=== PATIENT | female | born 1950 | race Caucasian/White ===

== ENCOUNTER 2020-04-13 10:45 | Emergency (ER) | payer MEDICARE, BC ==
[2020-04-13] MEDS ORDERED: Sodium Chloride 0.9% 1,000 ML IV ONE (10:52)
[2020-04-13] MEDS ORDERED: Sodium Chloride 0.9% 10 ML Syringe FLUSH PRN (10:52)
[2020-04-13] MEDS ORDERED: Ketorolac 30 MG/ML SDV IVPUSH ONE (11:19)
[2020-04-13] MEDS ORDERED: Ondansetron 4 MG/2 ML SDV IVPUSH ONE ×2 (11:19→12:37)
--- NOTE | 2020-04-13 11:19 | EDM.PDOC ---
ED HPI GENERAL MEDICAL PROBLEM - General Chief Complaint: General Stated Complaint: LOW BACK PAIN, NAUSEA, VOMITING, POOR APPETITE Time Seen by Provider: 04/13/20 11:00 Source of Information: Reports: Patient History Limitations: Reports: No Limitations - History of Present Illness INITIAL COMMENTS - FREE TEXT/NARRATIVE: 70 YO WF PRESENTS TO ER COMPLAINING OF SEVERE LOW BACK PAIN X 2 WEEKS. PT REPORTS HISTORY OF CHRONIC LOW BACK PAIN WITH HISTORY OF EPIDURAL INJECTION APPROXIMATELY 1 YEAR AGO. PT REPORTS SHE HAS BEEN TAKING NAPROSYN FOR THE PAIN AND GETTING MINIMAL RELIEF. PT REPORTS TODAY SHE BEGAN TO FEEL NAUSEATED AND LIGHTHEADED. PT REPORTS AFTER TAKING HER MORNING MEDICATION SHE VOMITED X 1. PT DENIES DYSURIA, URINARY FREQUENCY OR URGENCY. PT DENIES CHEST PAIN/SHORTNESS OF BREATH. PT BELIEVES HER NAUSEA WAS RELATED TO HER SEVERE PAIN. PT DENIES FEVER/CHILLS. PT STATES SHE DID NOT TAKE HER NAPROSYN THIS AM PRIOR TO COMING TO ER. PT REPORTS HISTORY OF NIDDM- BS THIS AM 230. Duration: Week(s): (2), Chronic, Getting Worse Location: Reports: Back Quality: Reports: Ache Severity: Moderate Improves with: Reports: Rest Worsens with: Reports: Movement Associated Symptoms: Reports: Nausea/Vomiting. Denies: Chest Pain, Cough, Diaphoresis, Fever/Chills, Headaches, Rash, Shortness of Breath, Syncope, Weakness Treatments DIRECTOR OF RECRUITING: Reports: NSAIDS - Related Data Allergies Allergy/AdvReac Type Severity Reaction Status Date / Time Penicillins Allergy Rash Verified 04/13/20 11:45 Home Meds: Home Meds Ascorbic Acid [Vitamin C] 500 mg PO DAILY 12/06/15 [History] Aspirin [Halfprin] 81 mg PO BEDTIME 12/06/15 [History] Lisinopril [Prinivil] 5 mg PO DAILY 12/06/15 [History] Multivitamin with Minerals [Multiple Vitamin] 1 tab PO DAILY 12/06/15 [History] Terbinafine [LamISIL AT 1% Crm] 1 applic TOP ASDIRECTED PRN 12/06/15 [History] Triamcinolone Acetonide [Triamcinolone Acetonide 0.1% Crm] 1 applic TOP TID PRN 12/06/15 [History] atorvaSTATin Calcium [Atorvastatin Calcium] 20 mg PO BEDTIME 12/06/15 [History] glipiZIDE [Glipizide ER] 10 mg PO DAILY 12/06/15 [History] metFORMIN HCl [Metformin HCl] 2 cap PO BID 12/06/15 [History] Ciprofloxacin HCl [Cipro] 500 mg PO BID #10 tablet 04/13/20 [Rx] methocarbamoL [Robaxin] 500 mg PO TID PRN #10 tab 04/13/20 [Rx] traMADol [Ultram] 50 mg PO Q6H PRN #10 tab 04/13/20 [Rx] 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: Musculoskeletal History: Reports: Back Pain, Chronic Endocrine/Metabolic History: Reports: Diabetes, Type II ED ROS GENERAL - Review of Systems Review Of Systems: See Below Constitutional: Reports: No Symptoms HEENT: Reports: No Symptoms Respiratory: Reports: No Symptoms Cardiovascular: Reports: No Symptoms Endocrine: Reports: No Symptoms GI/Abdominal: Reports: Nausea, Vomiting : Reports: No Symptoms Musculoskeletal: Reports: Back Pain Skin: Reports: No Symptoms Neurological: Reports: Difficulty Walking Psychiatric: Reports: No Symptoms Hematologic/Lymphatic: Reports: No Symptoms Immunologic: Reports: No Symptoms ED EXAM, GENERAL - Physical Exam Exam: See Below Exam Limited By: No Limitations General Appearance: Alert, WD/WN, No Apparent Distress Head: Atraumatic, Normocephalic Neck: Normal Inspection, Supple, Non-Tender, Full Range of Motion Respiratory/Chest: No Respiratory Distress, Lungs Clear, Normal Breath Sounds, No Accessory Muscle Use, Chest Non-Tender Cardiovascular: Normal Peripheral Pulses, Regular Rate, Rhythm, No Edema, No Gallop, No JVD, No Murmur, No Rub GI/Abdominal: Normal Bowel Sounds, Soft, Non-Tender, No Organomegaly, No Distention, No Abnormal Bruit, No Mass Back Exam: Decreased Range of Motion, Muscle Spasm, Paraspinal Tenderness Extremities: Normal Inspection, Normal Range of Motion, Non-Tender, Normal Capillary Refill, No Pedal Edema Neurological: Alert, Oriented, CN II-XII Intact, Normal Cognition, Normal Gait, Normal Reflexes, No Motor/Sensory Deficits Psychiatric: Normal Affect, Normal Mood Skin Exam: Warm, Dry, Intact, Normal Color, No Rash Lymphatic: No Adenopathy Course - Orders/Labs/Meds Orders: Active Orders 24 hr Category Date Time Status Peripheral IV Care [RC] . DIRECTED Care 04/13/20 10:52 Active CULTURE URINE [RM] Stat Lab 04/13/20 12:51 Ordered Ciprofloxacin [Ciprofloxacin HCl] Med 04/13/20 12:51 Once 500 mg PO ONETIME ONE Sodium Chloride 0.9% [Saline Flush] Med 04/13/20 10:52 Active 10 ml FLUSH Q8HR PRN Peripheral IV Insertion Adult [OM.PC] Routine Oth 04/13/20 10:52 Ordered Medication Orders Sodium Chloride (Saline Flush) 10 ml FLUSH Q8HR PRN PRN Reason: keep vein open Labs: Laboratory Tests 04/13/20 04/13/20 04/13/20 Range/Units 11:36 11:36 12:17 WBC 14.94 H (5.00-10.00) 10^3/uL RBC 4.13 (3.80-5.50) 10^6/uL Hgb 12.3 (12.0-16.0) g/dL Hct 37.0 (37.0-47.0) % MCV 89.6 D (82.0-92.0) fL MCH 29.8 (27.0-31.0) pg MCHC 33.2 (32.0-36.0) g/dL RDW 12.3 (11.5-14.5) % Plt Count 290 (150-400) 10^3/uL MPV 9.4 (7.4-10.4) fL Immature Gran % (Auto) 0.2 (0.0-5.0) % Neut % (Auto) 77.6 H (50.0-70.0) % Lymph % (Auto) 16.5 L (20.0-40.0) % [place] % (Auto) 5.4 (2.0-8.0) % Eos % (Auto) 0.1 L (1.0-3.0) % Baso % (Auto) 0.2 (0.0-1.0) % Neut # (Auto) 11.59 H (2.50-7.00) 10^3/uL Lymph # (Auto) 2.47 (1.00-4.00) 10^3/uL [place] # (Auto) 0.81 H (0.10-0.80) 10^3/uL Eos # (Auto) 0.01 L (0.10-0.30) 10^3/uL Baso # (Auto) 0.03 (0.00-0.10) 10^3/uL Immature Gran # (Auto) 0.03 (0.00-0.50) 10^3/uL Sodium 136 (136-145) mmol/L Potassium 4.4 (3.3-5.3) mmol/L Chloride 98 (98-115) mmol/L Carbon Dioxide 23.7 (21.0-32.0) mmol/L Anion Gap 18.7 H (5-15) mmol/L BUN 10 (6-25) mg/dL Creatinine 0.51 (0.51-1.17) mg/dL Est Cr Clr Drug Dosing TNP Estimated GFR (MDRD) > 60 mL/min Glucose 246 H (75 - 99) mg/dL Calcium 9.4 (8.7-10.3) mg/dL Total Bilirubin 0.4 (0.2-1.0) mg/dL AST 14 L (15-37) U/L ALT 22 (12-78) U/L Alkaline Phosphatase 105 (46-116) IU/L Total Protein 7.4 (6.4-8.2) g/dL Albumin 3.82 (3.00-4.80) g/dL Lipase 90 (73-393) U/L Specimen Type Urinvoid Urine Color Yellow (YELLOW) Urine Appearance Clear (CLEAR) Urine pH 5.5 (5.0-9.0) Ur Specific [place] 1.020 (1.005-1.030) Urine Protein Negative (NEGATIVE) mg/dL Urine Glucose (UA) 250 H (NEGATIVE) mg/dL Urine Ketones >=160 H (NEGATIVE) mg/dL Urine Occult Blood Small H (NEGATIVE) Urine Nitrite Negative (NEGATIVE) Urine Bilirubin Small H (NEGATIVE) Urine Urobilinogen 0.2 (0.2-1.0) E.U./dL Ur Leukocyte Esterase Negative (NEGATIVE) U Hyaline Cast (Auto) Few Urine RBC 10-20 H (0-5) /HPF Urine WBC 0-5 (0-5) /HPF Ur Epithelial Cells Few /LPF Amorphous Sediment Few (0/HPF) /HPF Urine Bacteria Few (NONE TO FEW) /HPF Meds: Medications Generic Name Dose Route Start Last Admin Trade Name Freq PRN Reason Stop Dose Admin Sodium Chloride 10 ml 04/13/20 10:52 Saline Flush FLUSH Q8HR PRN keep vein open Discontinued Medications Generic Name Dose Route Start Last Admin Trade Name Quirinoq PRN Reason Stop Dose Admin Diazepam 5 mg 04/13/20 11:19 Valium IVPUSH 04/13/20 11:20 ONETIME ONE Hydromorphone HCl 0.5 mg 04/13/20 12:37 Dilaudid IVPUSH 04/13/20 12:38 ONETIME ONE Sodium Chloride 1,000 mls @ 999 mls/hr 04/13/20 10:52 Normal Saline IV 04/13/20 11:52 .BOLUS ONE Ketorolac Tromethamine 30 mg 04/13/20 11:19 Toradol IVPUSH 04/13/20 11:20 ONETIME ONE Ondansetron HCl 4 mg 04/13/20 11:19 Zofran IVPUSH 04/13/20 11:20 ONETIME ONE Ondansetron HCl 4 mg 04/13/20 12:37 Zofran IVPUSH 04/13/20 12:38 ONETIME ONE - Radiology Interpretation Free Text/Narrative:: PT REPORTS FEELING BETTER AFTER MEDICATION. DE HAS APPOINTMENT IN CLINIC ON Wednesday04/15/2020. RECOMMENDED CONSIDERATION OF PHYSICAL THERAPY AND EPIDURAL INJECTIONS. PT NEEDS HGBA1C DUE TO ELEVATED BLOOD SUGARS. PT AGREEABLE TO PLAN OF CARE. WILL DISCHARGE ON ULTRAM/SKELAXIN/MOTRIN X 5 DAYS Departure - Departure Time of Disposition: 12:57 Disposition: Home, Self-Care 01 Condition: Fair Clinical Impression: UTI, Urinary tract infectious disease, Hyperglycemia Low back pain Qualifiers: Chronicity: chronic Sciatica presence: without sciatica - Discharge Information Prescriptions: Ciprofloxacin HCl [Cipro] 500 mg PO BID #10 tablet methocarbamoL [Robaxin] 500 mg PO TID PRN #10 tab PRN Reason: Muscle Spasm traMADol [Ultram] 50 mg PO Q6H PRN #10 tab PRN Reason: Pain Instructions: Urinary Tract Infection, Adult, [id number], Chronic Back Pain, [id number] Referrals: Sonia Post MD [Primary Care Provider] - Forms: ED Department Discharge Additional Instructions: 1. DISCHARGE HOME 2. CIPRO 500MG TWICE/DAY X 7 DAYS FOR UTI 3. ULTRAM 50MG 1-2 TABLETS EVERY 4-6 HOURS PRN FOR PAIN 4. MOTRIN 600MG EVERY 6 HOURS X 5 DAYS OTC (3 TABLETS) 5. SKELAXIN 800MG EVERY 8 HOURS NEEDED MUSCLE SPASMS 6. FOLLOW UP IN CLINIC FOR RECHECK AND CONSIDER PHYSICAL THERAPY, EPIDURAL INJECTIONS 7. REPEAT HGBA1C IN CLINIC THIS WEEK 8. RETURN TO ER FOR WORSENING SYMPTOMS - My Orders Last 24 Hours: My Active Orders 04/13/20 10:52 Peripheral IV Care [RC] . DIRECTED Sodium Chloride 0.9% [Saline Flush] 10 ml FLUSH Q8HR PRN Peripheral IV Insertion Adult [OM.PC] Routine 04/13/20 12:51 CULTURE URINE [RM] Stat Ciprofloxacin [Ciprofloxacin HCl] 500 mg PO ONETIME ONE - Assessment/Plan Last 24 Hours: My Active Orders 04/13/20 10:52 Peripheral IV Care [RC] . DIRECTED Sodium Chloride 0.9% [Saline Flush] 10 ml FLUSH Q8HR PRN Peripheral IV Insertion Adult [OM.PC] Routine 04/13/20 12:51 CULTURE URINE [RM] Stat Ciprofloxacin [Ciprofloxacin HCl] 500 mg PO ONETIME ONE Assessment:: 1. LOW BACK PAIN 2. UTI 3. HYPERGLYCEMIA Plan: 1. DISCHARGE HOME 2. CIPRO 500MG TWICE/DAY X 7 DAYS FOR UTI 3. ULTRAM 50MG 1-2 TABLETS EVERY 4-6 HOURS PRN FOR PAIN 4. MOTRIN 600MG EVERY 6 HOURS X 5 DAYS #20 5. SKELAXIN 800MG EVERY 8 HOURS NEEDED MUSCLE SPASMS 6. FOLLOW UP IN CLINIC FOR RECHECK AND CONSIDER PHYSICAL THERAPY, EPIDURAL INJECTIONS 7. REPEAT HGBA1C IN CLINIC THIS WEEK 8. RETURN TO ER FOR WORSENING SYMPTOMS
[2020-04-13 12:00] LABS: ANION GAP 18.7 mmol/L (5-15); CHLORIDE,CL 98 mmol/L (98-115); SODIUM,NA 136 mmol/L (136-145)
[2020-04-13] MEDS ORDERED: HYDROmorphone 1 MG/ML Syringe IVPUSH ONE (12:37)
[2020-04-13] MEDS ORDERED: Ciprofloxacin 500 MG Tab PO ONE ×2 (12:51→13:04)
[2020-04-13] MEDS ORDERED: Methocarbamol 500 MG Tab PO ONE (13:05)
[2020-04-13] MEDS ORDERED: traMADol 50 MG Tab PO ONE (13:05)
[2020-04-13 15:33] VITALS: BP 148/60; PULSE 83
== END 2020-04-13 14:25 | disposition home or self-care (01) ==
LOC: KA.ED 10:45
DX: N39.0 Urinary tract infection, site not specified (principal); E11.65 Type 2 diabetes mellitus with hyperglycemia; Z88.0 Allergy status to penicillin; Z79.82 Long term (current) use of aspirin; Z79.84 Long term (current) use of oral hypoglycemic drugs; Z79.899 Other long term (current) drug therapy
CPT/HCPCS: 80053; 81001; 83690; 85025; 87086; 96361; 96374; 96375; 96376; 99283; 99284-25; A9270-GY; J1170; J1885; J2405; J3360; J7030

== ENCOUNTER 2020-04-18 16:30 | Observation (INO) | payer MEDICARE, BC ==
[2020-04-18] MEDS ORDERED: Ondansetron 4 MG/2 ML SDV IV PRN (16:48)
[2020-04-18] MEDS ORDERED: methylPREDNISolone Sodium Succinate 125 MG/2 ML SDV IVPUSH ONE (16:59)
[2020-04-18] MEDS ORDERED: Lactated Ringers 1,000 ML IV SCH (17:00)
[2020-04-18] MEDS ORDERED: Metoclopramide 10 MG/2 ML SDV IVPUSH ONE (17:30)
[2020-04-18] MEDS: Sodium Chloride 0.9% 1,000 ML IV SCH (18:18)
[2020-04-18] MEDS: HYDROmorphone 2 MG/ML SDV IVPUSH PRN (18:19)
[2020-04-19] MEDS: Sodium Chloride 0.9% 1,000 ML IV SCH ×3 (02:02→21:32)
[2020-04-19] MEDS ORDERED: Diatrizoate Meglumine/Diatrizoate Sodium 37% 30 ML Bottle PO ONE (07:53)
[2020-04-19] MEDS ORDERED: Iopamidol 755 Mg/ML 100 ML Bottle IV ONE (07:54)
[2020-04-19] MEDS ORDERED: Sodium Chloride 0.9% 50 ML IV SCH (08:00)
[2020-04-19] MEDS ORDERED: metFORMIN 500 MG Tab PO SCH (09:00)
[2020-04-19] MEDS ORDERED: Ciprofloxacin 500 MG Tab PO SCH (09:00)
[2020-04-19] MEDS: HYDROmorphone 2 MG/ML SDV IVPUSH PRN (09:00)
[2020-04-19] MEDS ORDERED: Methocarbamol 500 MG Tab PO PRN (09:15)
[2020-04-19] MEDS ORDERED: Calcitonin (Salmon) 200 Units/ML 2 ML MDV SUBCUT SCH (10:30)
[2020-04-19] MEDS: traMADol 50 MG Tab PO PRN ×2 (10:42→21:31)
[2020-04-19] MEDS: Lisinopril 5 MG Tab PO SCH (10:43)
[2020-04-19] MEDS: Multivitamins with Minerals/Iron/Folic Acid/Lycopene Tab PO SCH (12:03)
--- NOTE | 2020-04-19 14:27 | HP ---
HISTORY OF PRESENT ILLNESS: This is a 70-year-old female who presents to this facility today to receive an epidural steroid injection with Angela Gotti CRNA. The patient has been having low back pain for the last three months. She was actually seen in the emergency room on April 13, 2020 and was evaluated by Terry Wing. She was treated with Valium, Dilaudid, Toradol, and Zofran. She was also found to have a urinary tract infection and was treated with Cipro. She was also given a prescription for Skelaxin. She followed up with Dr. Sonia Dumont in the clinic on April 15. She did have lab work on that day as well. White count was slightly elevated, but improved from the emergency room. Comprehensive metabolic panel showed elevated glucose of 199. BUN and creatinine were normal. Liver function tests were essentially normal with the exception of a slightly low AST. Lipid panel was completely normal. She had a lumbar spine AP and lateral x-ray performed on 04/17/2020. Findings were since the prior study, there were multiple new compression deformities. These are age indeterminate. There are compression deformities of T11, T12, L1, L2 and L3. Additionally, there is likely compression deformity at L5. MRI of the spine was recommended. She was referred to Angela Gotti for epidural steroid injection. The patient was in so much pain that she was unable to tolerate the injection. MRI was then performed today. The patient had to be sedated for the MRI. She was admitted to the hospital for pain control as well as GI workup for nausea. She did receive Zofran in the procedure room prior to coming to the floor. Results of the MRI showed acute to subacute moderate L3 and mild L2 compression fractures new relative to June 29, 2019, but unchanged relative to April 17, 2020. There was also a subacute [id number] L5 compression fracture which is new relative to 2019. Chronic moderate T12 and L1 compression fracture is unchanged. Mild to moderate lumbar spondylosis with no new nerve root compression. PAST MEDICAL HISTORY: Includes diabetes mellitus type 2, hypertension, hypercholesterolemia, and back pain. She is on a daily aspirin regimen. She takes dietary supplements of vitamin C as well as a multivitamin. She has diabetes mellitus and takes glipizide as well as metformin. She has hypercholesterolemia and is taking atorvastatin. For back pain, she is taking Robaxin as well as tramadol. She is taking Cipro for urinary tract infection which was diagnosed on 04/13/2020 in the emergency room. SOCIAL HISTORY: She is retired. She lives by herself. She does have a daughter, Bijal who accompanies her to the clinic today. She is a former smoker, but does not smoke now. She does not use alcohol. REVIEW OF SYSTEMS: She denies any headache, visual disturbances, ear pain, sore throat, chest pain, palpitations, shortness of breath, abdominal pain, diarrhea, or constipation. Last bowel movement was on April 15, 2020. She does complain of nausea, however. She attributes this to the high level of pain she is experiencing at the time. PHYSICAL EXAMINATION: VITAL SIGNS: Temp is 98.1, pulse 82, respirations 16, blood pressure 126/59, and O2 saturation is 94% on room air. SKIN: Warm and dry to touch. CARDIAC: Reveals S1, S2 to be normal. Rate and rhythm are regular. No murmur, click, or gallop is auscultated. LUNGS: Clear. ABDOMEN: Somewhat tender over the epigastrium due to nausea. Bowel sounds are hypoactive. EXTREMITIES: There is no pedal edema. She does have bilateral lower extremity weakness with good pulses. IMPRESSION: 1. Intractable low back pain. She will be admitted for pain management and treated with Dilaudid every 2 hours as needed. I did give her a one-time dose of Solu-Medrol 125 mg IV x1. 2. Nausea and constipation, etiology unclear. We will get a CT of the abdomen and pelvis with oral and IV contrast in the morning. Perhaps by then, the patient will be more comfortable and be able to tolerate lying on the CT platform. I did not repeat lab work due to the fact that she just had lab work done on the as well as the . 3. Diabetes mellitus, stable. 4. Low back pain is attributed to multiple compression fractures. I am unclear whether she would be a candidate for kyphoplasty/vertebroplasty. I will research this. She is admitted to observation status. If she requires more than 48 hours of hospital care, we will switch her to inpatient status. /[id number]/MODL
--- NOTE | 2020-04-19 14:53 | PN ---
04/19/2020 PATIENT NAME: SHARRI CANNON HISTORY OF PRESENT ILLNESS: This is a 70-year-old female who was admitted to the emergency room yesterday with intractable low back pain and nausea. She was here for an epidural steroid injection and was not even able to tolerate the epidural steroid injection. She was sedated for an MRI which showed acute to subacute moderate L3 and mild L2 compression fractures, which were new relative to June 29, 2019, but unchanged relative to lumbar spine x-ray on April 17, 2020. There is also subacute mild to moderate L5 compression fracture, which was new since 2019. There is a chronic moderate T12 and L1 compression fracture, which were unchanged. Mild to moderate lumbar spondylosis with no nerve root compression identified. The patient received one dose of Solu-Medrol 125 mg. We did not continue steroids due to the fact that the patient is worried about her diabetes being affected by the steroids. She was given Dilaudid as well as Zofran. She is feeling quite a bit better today. Her MRI was reviewed by Nabil Tony and he recommended a specialized brace that the patient is going to go down to [place] to be fitted for. She may be a candidate for kypho/vertebroplasty, however, has to fail conservative measures first. She did not have any lab work done with the exception of a COVID test which was negative. She had just had lab work drawn on April 13, 2020, when she was in the ER and also she had lab work done on April 15 when she was following up with Dr. Scott. PHYSICAL EXAMINATION: VITAL SIGNS: Temperature is 98.8, pulse 80, respirations 18, blood pressure 138/80, and O2 saturation is 97% on room air. SKIN: Warm and dry to touch. HEART: Normal. LUNGS: Normal. MUSCULOSKELETAL: She is sitting in a chair quite rigidly. Range of motion is quite compromised due to her back pain. EXTREMITIES: There is no pedal edema. IMPRESSION: 1. Intractable low back pain. The one-time dose of IV Solu-Medrol, I believe, was beneficial for her. She will continue on Dilaudid for pain. We did restart her home medications, which also include Robaxin and Ultram. 2. Nausea. This is improved. She is receiving Zofran on an as-needed basis. She did have a CT scan of the abdomen and pelvis today with oral and IV contrast which was negative. We are holding her metformin for 48 hours. 3. Diabetes mellitus is stable on metformin and glipizide. 4. Compression fractures of the thoracic and lumbar spine. She will be fitted for a brace. It was also recommended that she receive calcitonin. She was given a subcu dose today. She will continue on nasal dose on a daily basis after discharge. Plan is to discharge her tomorrow if she continues to improve. I would like to keep her one more day due to the pain and nausea. The patient has been able to eat today and has not vomited now for more than [address] Sonia Urban, who is the patient's PCP, has been fully updated on this patient's admission and progress. /[id number]/MODL
[2020-04-19] MEDS ORDERED: glipiZIDE 5 MG Tab.ER PO ONE (19:45)
[2020-04-19] MEDS ORDERED: glipiZIDE 5 MG Tab.ER PO SCH (21:00)
[2020-04-19] MEDS ORDERED: Loperamide 2 MG Cap PO PRN (21:03)
[2020-04-20] MEDS: Sodium Chloride 0.9% 1,000 ML IV SCH (05:45)
[2020-04-20 05:48] VITALS: PULSE 77
[2020-04-20] MEDS: traMADol 50 MG Tab PO PRN (05:52)
[2020-04-20] MEDS ORDERED: glipiZIDE 5 MG Tab.ER PO SCH (08:00)
[2020-04-20 08:13] VITALS: BP 116/57
[2020-04-20] MEDS: Lisinopril 5 MG Tab PO SCH (08:13)
[2020-04-20] MEDS ORDERED: atorvaSTATin 10 MG Tab PO SCH (11:00)
[2020-04-20] MEDS ORDERED: Aspirin 81 MG Tab.EC PO SCH (11:00)
[2020-04-20] MEDS: Multivitamins with Minerals/Iron/Folic Acid/Lycopene Tab PO SCH (11:20)
--- NOTE | 2020-04-22 21:40 | DISCH ---
HOSPITAL COURSE: This is a 70-year-old female who was admitted to the hospital on April 18, 2020, with intractable low back pain. The patient was actually in the facility to receive an epidural steroid injection with Angela Gotti CRNA. The patient did not tolerate laying down and actually did not receive the epidural. Angela was concerned about discharging the patient home and thought she should be admitted for pain control. The patient was seen in the emergency room prior to this admission on April 13, 2020, was evaluated by Terry Wing. She was given: 1. Valium. 2. Dilaudid. 3. Toradol. 4. Zofran. She was also found to have a urinary tract infection, was treated with Cipro. She was given a prescription for Skelaxin. She followed up in the clinic with Dr. Sonia Urban on April 15. She did have lab work on that day as well. White count was still slightly elevated, but improved from the emergency room. Comprehensive metabolic panel was basically normal with the exception of an elevated glucose of 199 and a slightly low AST. Lipid panel was completely normal. She had a lumbar spine AP and lateral x-rays performed on April 17, 2020, which showed multiple new compression deformities. She was found to have compression deformities of T11, T12, L1, L2, and L3. Additionally, there was a likely compression deformity at L5. She was referred to Angela Gotti for MONIQUE. She did not tolerate the injection and did not receive the injection. MRI was performed. The patient had to be sedated for the MRI due to the pain. She was admitted to the hospital for pain control as well as a GI workup for nausea. She did receive Zofran in the procedure room prior to coming to the floor. Results of the MRI showed acute to subacute, moderate L3 and mild L2 compression fractures. Also, subacute [id number] L5 compression fracture, which was new. Chronic moderate T12 and L1 compression fracture, unchanged. Mild to moderate lumbar spondylosis with no new nerve root compression. While in the hospital, she did receive Dilaudid for pain. She did have a one time dose of Solu-Medrol 125 IV. She did have a CT scan of the abdomen and pelvis with oral and IV contrast on April 19, 2020, which was completely normal. No lab work was done while she was in the hospital due to the fact that she had lab work on April 13 as well as April 17. Her glucose readings while in the hospital were somewhat elevated. PHYSICAL EXAMINATION: VITAL SIGNS: Temp is 99.1, pulse 91, respirations 18, blood pressure 134/64, O2 saturation is 94%. SKIN: Warm and dry to touch. CARDIAC: Reveals S1, S2 to be normal. Rate and rhythm are regular. No murmur, click, or gallop is auscultated. LUNGS: Clear. ABDOMEN: Soft, nontender. Bowel sounds present in all four quadrants. The patient does have intractable low back pain. Range of motion is quite compromised due to her back pain. She does have some lower extremity weakness as well. IMPRESSION: 1. Intractable low back pain with multiple compression fractures. She will be discharged on the same medications she was on prior to admission. No new changes. 2. Nausea and constipation. GI workup was negative. Her nausea has been controlled with Zofran. The patient has had a bowel movement while in the hospital. 3. Diabetes mellitus, stable. She will follow up in the clinic with Dr. Sonia Dumont or myself next week. Should she have any questions or concerns, she will call the clinic or hospital. /[id number]/MODL MTDD
== END 2020-04-20 12:40 | disposition home or self-care (01) ==
LOC: KA.MS 16:30
DX: M54.5 Low back pain (principal); E11.9 Type 2 diabetes mellitus without complications; I10 Essential (primary) hypertension; E78.00 Pure hypercholesterolemia, unspecified; K59.00 Constipation, unspecified; R11.0 Nausea; M47.816 Spondylosis without myelopathy or radiculopathy, lumbar region; M48.55XA Collapsed vertebra, not elsewhere classified, thoracolumbar region, initial encounter for fracture; Z20.828 Contact with and (suspected) exposure to other viral communicable diseases; Z79.82 Long term (current) use of aspirin; Z79.84 Long term (current) use of oral hypoglycemic drugs; Z79.899 Other long term (current) drug therapy; Z87.891 Personal history of nicotine dependence
CPT/HCPCS: 74177; 82962; 96361; 96374; 96375; 96376; 99217; 99220; 99225; A9270-GY; G0378; J1170; J2405; J2765; J2930; J7030; J7050; Q9963; Q9967; U0002

== ENCOUNTER 2020-06-04 10:00 | Day surgery (SDC) | payer MEDICARE, BC ==
[~2020-06-04 10:00] MED LIST: Lidocaine 2% 100 MG/5 ML Syringe ONE; Midazolam 1 MG/ML 2 ML SDV ONE; Propofol 200 MG/20 ML SDV ONE; Sodium Chloride 0.9% 1,000 ML IV SCH; Sodium Chloride 0.9% 10 ML Syringe FLUSH PRN
[2020-06-04] MEDS ORDERED: Lidocaine 2% 100 MG/5 ML Syringe IVPUSH ONE (10:01)
[2020-06-04] MEDS ORDERED: Midazolam 1 MG/ML 2 ML SDV IV ONE (10:01)
[2020-06-04] MEDS ORDERED: Propofol 200 MG/20 ML SDV IV ONE (10:01)
--- NOTE | 2020-06-04 12:05 | PCM.PN ---
- General Info Date of Service: 06/04/20 - Review of Systems Systems Review Comment:: 70-year-old female with symptoms of weight loss, dark stools, and anemia. Referred for EGD and colonoscopy. She is medically stable to proceed today. Her recent history and physical is reviewed and no significant changes are noted. I have discussed the proposed EGD and colonoscopy with the patient. Risks such as but not limited to bleeding and GI injury reviewed. She agrees to proceed. - Patient Data Vitals - Most Recent: Last Vital Signs Temp 98.8 F 06/04/20 10:09 Pulse 83 06/04/20 10:09 Resp 16 06/04/20 10:09 BP 132/59 L 06/04/20 10:09 Pulse Ox 99 06/04/20 10:09 Weight - Most Recent: 42.638 kg Lab Results Last 24 Hours: Laboratory Results - last 24 hr 06/04/20 06/04/20 06/04/20 Range/Units 08:55 10:23 10:42 WBC 5.94 (5.00-10.00) 10^3/uL RBC 3.91 (3.80-5.50) 10^6/uL Hgb 11.9 L D (12.0-16.0) g/dL Hct 35.1 L (37.0-47.0) % MCV 89.8 D (82.0-92.0) fL MCH 30.4 (27.0-31.0) pg MCHC 33.9 (32.0-36.0) g/dL RDW 13.4 (11.5-14.5) % Plt Count 408 H (150-400) 10^3/uL MPV 8.7 (7.4-10.4) fL Immature Gran % (Auto) 0.3 (0.0-5.0) % Neut % (Auto) 46.7 L (50.0-70.0) % Lymph % (Auto) 33.5 (20.0-40.0) % [place] % (Auto) 19.0 H (2.0-8.0) % Eos % (Auto) 0.3 L (1.0-3.0) % Baso % (Auto) 0.2 (0.0-1.0) % Neut # (Auto) 2.77 (2.50-7.00) 10^3/uL Lymph # (Auto) 1.99 (1.00-4.00) 10^3/uL [place] # (Auto) 1.13 H (0.10-0.80) 10^3/uL Eos # (Auto) 0.02 L (0.10-0.30) 10^3/uL Baso # (Auto) 0.01 (0.00-0.10) 10^3/uL Immature Gran # (Auto) 0.02 (0.00-0.50) 10^3/uL POC Glucose 152 H (74-100) mg/dL SARS CoV-2 RNA Rapid GENEVIEVE Negative (NEGATIVE) Med Orders - Current: Current Medications Sodium Chloride (Normal Saline) 1,000 mls @ 50 mls/hr IV ASDIRECTED GREER Last Admin: 06/04/20 10:55 Dose: 50 mls/hr Documented by: Sodium Chloride (Saline Flush) 10 ml FLUSH Q8HR PRN PRN Reason: keep vein open Discontinued Medications Lidocaine HCl (Xylocaine 2%) Confirm Administered Dose 100 mg .ROUTE .STK-MED ONE Stop: 06/04/20 09:28 Midazolam HCl (Versed 1 Mg/Ml) Confirm Administered Dose 2 mg .ROUTE .STK-MED ONE Stop: 06/04/20 09:27 Propofol (Diprivan 20 Ml) Confirm Administered Dose 400 mg .ROUTE .STK-MED ONE Stop: 06/04/20 09:28 Sepsis Event Note - Focused Exam Vital Signs: Vital Signs Temp Pulse Resp BP Pulse Ox 06/04/20 10:09 98.8 F 83 16 132/59 L 99 - Problem List Review Problem List Initiated/Reviewed/Updated: Yes - My Orders Last 24 Hours: My Active Orders 06/03/20 12:07 Resuscitation Status Routine 06/04/20 Breakfast Nothing Per Oral Diet [DIET] 06/04/20 10:00 Blood Glucose Check, Bedside [RC] UPON Peripheral IV Care [RC] . DIRECTED Sodium Chloride 0.9% [Normal Saline] 1,000 ml IV ASDIRECTED Sodium Chloride 0.9% [Saline Flush] 10 ml FLUSH Q8HR PRN Peripheral IV Insertion Adult [OM.PC] Routine 06/04/20 10:30 Patient to Empty Bladder [RC] ASDIRECTED 06/04/20 11:00 Verify Patient Consent Obtain [RC] ASDIRECTED - Assessment Assessment:: Weight loss Dark stools Anemia - Plan Plan:: EGD and colonoscopy
--- NOTE | 2020-06-04 12:51 | PCM.OPNOTE ---
- General Post-Op/Procedure Note Date of Surgery/Procedure: 06/04/20 Operative Procedure(s): EGD with Biopsy and Colonoscopy Findings: 2 ulcers in 1st portion of duodenum. Clear ulcer bases with no active bleeding Few white patches in mid esophagus Moderate external hemorrhoids Normal colon Pre Op Diagnosis: Weight loss. Anemia Post-Op Diagnosis: Duodenal ulcers. Hemorrhoids Anesthesia Technique: MAC Primary Surgeon: Travon Pulido Pathology: Biopsies of Duodenum, Antrum, and Esophagus EBL in mLs: 3 Complications: None Condition: Good
--- NOTE | 2020-06-04 13:59 | OR ---
DATE OF SURGERY: 06/04/2020 SURGEON: Travon Pulido MD PREOPERATIVE DIAGNOSIS: Anemia and weight loss. POSTOPERATIVE DIAGNOSIS: Duodenal ulcers and hemorrhoids. OPERATION PERFORMED: Esophageal gastroduodenoscopy with biopsy and colonoscopy. INDICATIONS FOR SURGERY: This 70-year-old female has been having several a several-month history of symptoms of weight loss, abdominal pain, as well as some recent anemia. She is referred for upper and lower endoscopy. FINDINGS: On upper endoscopy, 2 ulcers are noted in the 1st portion of the duodenum. These are on the anterior and posterior surface of the duodenum. They range in size from 4-8 mm. Both ulcers have clean ulcer bases with no active bleeding. The remainder of the duodenum appears normal as does the gastric mucosa. The Z-line is distinct. There are few white patches in the mid esophagus which could be consistent with Samira esophagitis. The patient's colon appears normal with the exception of moderate-sized external hemorrhoids. DESCRIPTION OF PROCEDURE: The patient was taken to the operating room. She was given intravenous sedation and with her in the left lateral decubitus position, the Olympus gastroscope was advanced through a mouth guard into the oral cavity. Under direct visualization, the scope was advanced past the hypopharynx down into the esophagus, stomach, and into the duodenum where examination to the 3rd portion is performed. Findings in the duodenum were as described above and random biopsies of the duodenal mucosa were taken. The scope was withdrawn back into the stomach where full examination including retroflexed examination of the fundus was performed. Random biopsies of the antrum were taken to rule out H pylori. The esophagus was then examined as the scope was withdrawn and random biopsies in the mid portion of the esophagus were taken to rule out Samira esophagitis. The gastroscope is removed and attention was turned to the colon. Digital rectal exam was performed showing no rectal masses, although external hemorrhoids were identified. The Olympus colonoscope was inserted into the rectum. Retroflexed examination of the rectal canal is performed. The scope was then carefully advanced under direct visualization through the entire length of the colon until the cecum is reached. Cecal acquisition is confirmed by noting the normal internal cecal anatomy including the appendiceal orifice and the ileocecal valve. The light was also noted to transilluminate the abdominal wall in the right lower quadrant. After examining the cecum, the scope was slowly withdrawn sequentially re-examining the colonic segments until the entire colon and rectum had been fully examined. The scope was removed and the patient was taken from the operating room in satisfactory condition. ESTIMATED BLOOD LOSS: 3 cc. COMPLICATIONS: None. PROGNOSIS: Good. /[id number]/MODL
[2020-06-04] MEDS ORDERED: Methocarbamol 500 MG Tab PO ONE (15:12)
[2020-06-04] MEDS ORDERED: fentaNYL 100 MCG/2 ML SDV IVPUSH ONE ×2 (15:12→16:17)
[2020-06-04 17:33] VITALS: PULSE 76
[2020-06-04 17:34] VITALS: BP 118/54
== END 2020-06-04 16:40 | disposition home or self-care (01) ==
LOC: KA.SDS 10:00
PROVIDERS: ATTEND Surgery
DX: D64.9 Anemia, unspecified (principal); K64.4 Residual hemorrhoidal skin tags; K31.89 Other diseases of stomach and duodenum; K29.81 Duodenitis with bleeding; K29.51 Unspecified chronic gastritis with bleeding; E11.9 Type 2 diabetes mellitus without complications; E78.5 Hyperlipidemia, unspecified; I10 Essential (primary) hypertension; R63.4 Abnormal weight loss; Z01.812 Encounter for preprocedural laboratory examination; Z20.828 Contact with and (suspected) exposure to other viral communicable diseases; Z88.0 Allergy status to penicillin; Z79.82 Long term (current) use of aspirin; Z79.84 Long term (current) use of oral hypoglycemic drugs; Z79.899 Other long term (current) drug therapy; Z90.49 Acquired absence of other specified parts of digestive tract; Z87.891 Personal history of nicotine dependence; Z68.1 Body mass index [BMI] 19.9 or less, adult
CPT/HCPCS: 00813; 82962; 85025; A9270-GY; J2001; J2250; J2704; J3010; J7030; U0002

== ENCOUNTER 2020-06-07 16:15 | Inpatient (IN) | payer MEDICARE, BC ==
[2020-06-07] MEDS ORDERED: Ondansetron 4 MG/2 ML SDV IV PRN (16:18)
[2020-06-07] MEDS ORDERED: Docusate Sodium 100 MG Cap PO PRN (16:18)
[2020-06-07] MEDS ORDERED: Sodium Chloride 0.9% 10 ML Syringe FLUSH PRN (16:18)
[2020-06-07] MEDS ORDERED: Ondansetron 4 MG Tab.DIS PO PRN (16:40)
[2020-06-07] MEDS: HYDROmorphone 1 MG/ML Syringe IV PRN ×2 (16:51→21:19)
[2020-06-07] MEDS ORDERED: Aspirin 81 MG Tab.EC PO ONE (18:30)
[2020-06-07] MEDS ORDERED: atorvaSTATin 10 MG Tab PO ONE (18:30)
[2020-06-07] MEDS ORDERED: metFORMIN 500 MG Tab PO ONE (18:45)
[2020-06-07] MEDS ORDERED: glipiZIDE 5 MG Tab.ER PO ONE (18:45)
[2020-06-07] MEDS ORDERED: Omeprazole 20 MG Cap.CR PO ONE (18:45)
[2020-06-07] MEDS ORDERED: Enoxaparin 30 MG/0.3 ML Syringe SUBCUT ONE (19:00)
[2020-06-07] MEDS: glipiZIDE 5 MG Tab.ER PO SCH (20:19)
[2020-06-07] MEDS: metFORMIN 500 MG Tab PO SCH (20:19)
[2020-06-07] MEDS ORDERED: Ibuprofen 200 MG Tab PO SCH (21:00)
[2020-06-08] MEDS: HYDROmorphone 1 MG/ML Syringe IV PRN ×2 (06:10→20:00)
[2020-06-08 08:04] LABS: ANION GAP 11.1 mmol/L (5-15); CHLORIDE,CL 103 mmol/L (98-115); SODIUM,NA 139 mmol/L (136-145)
[2020-06-08] MEDS: metFORMIN 500 MG Tab PO SCH ×2 (08:54→18:24)
[2020-06-08] MEDS: Lisinopril 5 MG Tab PO SCH (08:54)
[2020-06-08] MEDS: Multivitamins with Minerals/Iron/Folic Acid/Lycopene Tab PO SCH (08:54)
[2020-06-08] MEDS: Omeprazole 20 MG Cap.CR PO SCH ×2 (08:55→18:24)
[2020-06-08] MEDS: glipiZIDE 5 MG Tab.ER PO SCH ×2 (09:41→18:24)
[2020-06-08] MEDS: Enoxaparin 40 MG/0.4 ML Syringe SUBCUT SCH (09:51)
[2020-06-08] MEDS: CALCITONIN NAS SCH (11:15)
--- NOTE | 2020-06-08 11:44 | PN ---
06/08/2020 PATIENT NAME: SHARRI CANNON HISTORY OF PRESENT ILLNESS: This is a 70-year-old female who is being seen today on hospital rounds. She was admitted yesterday with intractable back pain secondary to compression fractures in her back. She was seen in the clinic yesterday by Dr. Sonia Dumont to follow up of an upper GI endoscopy and colonoscopy here. This was performed by Dr. Pulido in this facility on 06/04/2020. She had been experiencing weight loss, vomiting, and dark stools. Colonoscopy showed external hemorrhoids, but no polyps. She did have two duodenal ulcers. The patient has a sore on her bottom over her coccyx and she stood yesterday in the clinic to have Dr. Dumont look at it and her back basically "locked up." She was admitted for intractable pain. She does have a recent history of vertebral fracture as well. Prior to admission, she was given methocarbamol 500 mg x1. She did receive diazepam 5 mg x2 tabs for a total of 10 mg also. PT was enlisted to assist her in getting up. She was able to stand and walk, however, very slowly. She was actually brought to the floor on a gurney. The patient has a history of hypercholesterolemia and is taking atorvastatin. She has osteoporosis and is taking calcitonin. She has diabetes mellitus and is taking glipizide as well as metformin. She has hypertension and is taking lisinopril. She does have a prescription for tramadol at home for pain. She also has a prescription for ondansetron for nausea as needed. She also uses methocarbamol for pain. She is on a daily multivitamin. Lab results from today show a hemoglobin of 10.5. I believe this is stable for this patient. Chemistry panel was normal with the exception of a low creatinine of 0.44, not clinically significant. Her glucose was 51 this morning. When rechecked with the bedside Accu-Chek, it was 69. The nurse taking care of her today did hold her glipizide. I am in complete agreement with that. The patient is lying in bed, looking fairly comfortable when I am seeing her today. She rates her pain a 6/10 while she is in bed relaxing. It does get worse when she is up walking. She did have a walk at 7 o'clock this morning. She reports that her appetite is very good. She states she did have some difficulty when being assisted to the bathroom this morning. After being in bed all night long, she felt as though she was quite stiff. PHYSICAL EXAMINATION: VITAL SIGNS: Temp is 97.7, pulse 80, respirations 16, blood pressure 120/61 and 136/57. Her O2 saturation is 96% on room air. SKIN: Warm and dry to touch. Somewhat pale. HEART: Normal. LUNGS: Normal. EXTREMITIES: There is no pedal edema. IMPRESSION: 1. Intractable back pain secondary to vertebral compression fracture. Her pain is better. She is receiving Dilaudid. No changes were made to her treatment regimen today. 2. Diabetes mellitus with hypoglycemia this morning. Her glipizide was held. We will continue to monitor this while she is hospitalized. 3. Osteoporosis, on calcitonin. 4. Hypercholesterolemia, on atorvastatin. 5. Hypertension, on lisinopril with stable blood pressures. PLAN: The plan is to ultimately schedule her for a vertebroplasty/kyphoplasty in [place]. Dr. Dumont will see her tomorrow. /[id number]/MODL
[2020-06-08] MEDS: Acetaminophen/HYDROcodone 325-5 MG Tab PO PRN (14:35)
[2020-06-08] MEDS: atorvaSTATin 10 MG Tab PO SCH (18:24)
[2020-06-08] MEDS: Aspirin 81 MG Tab.EC PO SCH (18:24)
[2020-06-09] MEDS: Omeprazole 20 MG Cap.CR PO SCH ×2 (08:10→18:08)
[2020-06-09] MEDS: metFORMIN 500 MG Tab PO SCH ×2 (08:10→18:07)
[2020-06-09] MEDS: Enoxaparin 40 MG/0.4 ML Syringe SUBCUT SCH (08:11)
[2020-06-09] MEDS: Lisinopril 5 MG Tab PO SCH (08:12)
[2020-06-09] MEDS: Multivitamins with Minerals/Iron/Folic Acid/Lycopene Tab PO SCH (08:12)
[2020-06-09] MEDS: CALCITONIN NAS SCH (08:13)
[2020-06-09] MEDS: HYDROmorphone 1 MG/ML Syringe IV PRN (09:17)
[2020-06-09] MEDS: glipiZIDE 5 MG Tab.ER PO SCH ×2 (09:39→18:07)
--- NOTE | 2020-06-09 11:51 | PCM.PN ---
- General Info Date of Service: 06/09/20 Admission Dx/Problem (Free Text): Itractable back pain secondary to vertebral compression fractures. - Review of Systems Systems Review Comment:: Faye is seen today on inpatient rounds. She was admitted on 06/07/2020 from the clinic with intractable back pain with inability to safely be cared for in the home due to requirement of assistance of >1 person. She was actually seen in the clinic in follow-up from an EGD and colonoscopy done on 06/04. Colonoscopy with external hemorrhoids but EGD with 2 duodenal ulcers. While no evidence of active bleeding was found, her hemoglobin dropped 11.5 on 04/15 to 6.1 on 05/31. She received a transfusion of 2 units PRBC's on 06/01 as an outpatient. She did note she was having black stool but that has since subsided. She was started on omeprazole 20 mg PO BID x 8 weeks on 06/07/2020. When she was in the clinic it took her nearly 3 hours to arise from a seated position due to pain and it took PT and myself with her daughter's encouragement to try to walk. It was clearly unsafe for her to return home. She has been struggling with back pain since spring. She thought it was her low back pain that she received an epidural for last fall with relief and went for repeat epidural injection, however, on fluoro it was concerning for compression fracture and she had an x-ray and MRI (04/17), the MRI showed: --Acute to subacute moderate L3 and mild L2 compression fracture --Subacute mild to moderate L3 compression fracture --Chronic moderate T12 and L1 compression fracture --No nerve root compression In speaking with orthopedics it was recommended that she be fitted with a PARRY or Jewitt brace and start on calcitonin nasal spray, which she has done, really with no improvement in her symptoms. No bowel or bladder issues. She has no radicular symptoms. She has been managing at home with the help of her daughter. She has been on tramadol and methocarbamol for her pain. She was admitted on 06/07 and started on hydromorphone 0.5 mg IV q 2 hours PRN. She has received 6 total doses, 3 doses in the past 24 hours with one dose of hydrocodone/APAP on 06/08 at 14:35. She states she is much better than the date of admission but still very slow with continued pain. She notes she is lactose intolerant and had cheerios with mild this AM and had a loose stool this morning. Appetite has been good. Glipizide has been held due to BG's in the 60's. She reports he is eating here like she typically does at home. - Patient Data Vitals - Most Recent: Last Vital Signs Temp 97.5 F 06/09/20 06:33 Pulse 78 06/09/20 06:33 Resp 16 06/09/20 06:33 BP 145/64 H 06/09/20 08:12 Pulse Ox 96 06/09/20 06:33 Weight - Most Recent: 99 lb I&O - Last 24 Hours: Intake & Output 06/08/20 06/09/20 06/09/20 22:59 06:59 14:59 Intake Total 370 100 Balance 370 100 Lab Results Last 24 Hours: Laboratory Results - last 24 hr 06/08/20 06/09/20 Range/Units 17:58 07:52 POC Glucose 100 67 L (74-100) mg/dL Med Orders - Current: Current Medications Hydrocodone Bitart/Acetaminophen ([place] 325-5 Mg) 1 tab PO Q4H PRN PRN Reason: Pain Last Admin: 06/08/20 14:35 Dose: 1 tab Documented by: Aspirin (Halfprin) 81 mg PO 1800 [facility] Last Admin: 06/08/20 18:24 Dose: 81 mg Documented by: Atorvastatin Calcium (Lipitor) 20 mg PO 1800 [facility] Last Admin: 06/08/20 18:24 Dose: 20 mg Documented by: Docusate Sodium (Colace) 100 mg PO BID PRN PRN Reason: Constipation Enoxaparin Sodium (Lovenox) 40 mg SUBCUT DAILY [facility] Last Admin: 06/09/20 08:11 Dose: 40 mg Documented by: Glipizide (Glucotrol Xl) 10 mg PO 0900,1800 [facility] Last Admin: 06/09/20 09:39 Dose: Not Given Documented by: Hydromorphone HCl (Dilaudid) 0.5 mg IV Q2H PRN PRN Reason: Pain (severe 7-10) Last Admin: 06/09/20 09:17 Dose: 0.5 mg Documented by: Lisinopril (Prinivil) 5 mg PO DAILY [facility] Last Admin: 06/09/20 08:12 Dose: 5 mg Documented by: Metformin HCl (Glucophage) 1,000 mg PO 0900,1800 [facility] Last Admin: 06/09/20 08:10 Dose: 1,000 mg Documented by: Methocarbamol (Robaxin) 500 mg PO QID PRN PRN Reason: Muscle Spasm Multivitamins/Minerals (Centrum) 1 tab PO DAILY [facility] Last Admin: 06/09/20 08:12 Dose: 1 tab Documented by: Calcitonin ([place]) (Own Med) 1 each JASE DAILY [facility] Last Admin: 06/09/20 08:13 Dose: 1 each Documented by: Omeprazole (Omeprazole) 20 mg PO 0900,1800 [facility] Last Admin: 06/09/20 08:10 Dose: 20 mg Documented by: Ondansetron HCl (Zofran) 4 mg IV Q6H PRN PRN Reason: Nausea/Vomiting Ondansetron HCl (Zofran Odt) 4 mg PO Q6H PRN PRN Reason: Nausea Sodium Chloride (Saline Flush) 10 ml FLUSH Q8HR PRN PRN Reason: keep vein open Last Admin: 06/07/20 16:55 Dose: 10 ml Documented by: Discontinued Medications Aspirin (Halfprin) 81 mg PO ONETIME ONE Stop: 06/07/20 18:31 Last Admin: 06/07/20 19:47 Dose: 81 mg Documented by: Atorvastatin Calcium (Lipitor) 20 mg PO ONETIME ONE Stop: 06/07/20 18:31 Last Admin: 06/07/20 19:47 Dose: 20 mg Documented by: Enoxaparin Sodium (Lovenox) 30 mg SUBCUT ONETIME ONE Stop: 06/07/20 19:01 Last Admin: 06/07/20 18:05 Dose: 30 mg Documented by: Glipizide (Glucotrol Xl) 10 mg PO ONETIME ONE Stop: 06/07/20 18:46 Last Admin: 06/07/20 19:47 Dose: 10 mg Documented by: Ibuprofen (Motrin) 400 mg PO BEDTIME [facility] Metformin HCl (Glucophage) 1,000 mg PO ONETIME ONE Stop: 06/07/20 18:46 Last Admin: 06/07/20 19:47 Dose: 1,000 mg Documented by: Omeprazole (Omeprazole) 20 mg PO ONETIME ONE Stop: 06/07/20 18:46 Last Admin: 06/07/20 19:46 Dose: 20 mg Documented by: - Exam General: Alert, Oriented, Cooperative, No Acute Distress, Other (Appears mildly uncomfortable, does not move freely in bed due to pain.) Lungs: Clear to Auscultation, Normal Respiratory Effort Cardiovascular: Regular Rate, Regular Rhythm, No Murmurs GI/Abdominal Exam: Normal Bowel Sounds Extremities: No Pedal Edema Sepsis Event Note - Evaluation Sepsis Screening Result: No Definite Risk - Focused Exam Vital Signs: Vital Signs Temp Pulse Resp BP BP Pulse Ox 06/09/20 08:12 145/64 H 06/09/20 06:33 97.5 F 78 16 146/67 H 96 - Problem List Review Problem List Initiated/Reviewed/Updated: Yes - My Orders Last 24 Hours: My Active Orders 06/08/20 18:00 Aspirin [Halfprin] 81 mg PO 1800 atorvaSTATin [Lipitor] 20 mg PO 1800 06/10/20 05:11 BASIC METABOLIC PANEL,BMP [CHEM] AM CBC WITH AUTO DIFF [HEME] AM IRON [REF] Routine - Assessment Assessment:: Intractable back pain secondary to multilevel vertebral compression fractures - Change hydromorphone from IV to oral, 0.5 mg PO q 4 hours PRN pain - I will consult with IR on 06/10 to discuss possible vertebroplasty due to pain and failure of conservative therapy - Continue calcitonin nasal spray daily - Methocarbamol 500 mg PO qid PRN DM with hypoglycemia - Hold glipizide for BG <70, may need to consider decreasing or discontinuing upon discharge - Continue metformin 1,000 mg PO BID Duodenal ulcer - Omeprazole 20 mg PO BID - NO NSAID's Hyperlipidemia - Atorvastatin 20 mg PO daily HTN - Lisinopril 5 mg PO daily DVT prophylaxis - Enoxaparin 40 mg subcut daily Nutritional supplement - MVI 1 tab PO daily CVD prophylaxis - ASA 81 mg PO daily, counseled patient about risk of bleeding given duodenal ulcer, she wants to stay on this CODE STATUS: Full Code Anticipate discharge on 1-2 days
[2020-06-09] MEDS ORDERED: HYDROmorphone 2 MG Tab PO PRN (11:56)
[2020-06-09] MEDS: atorvaSTATin 10 MG Tab PO SCH (18:07)
[2020-06-09] MEDS: Aspirin 81 MG Tab.EC PO SCH (18:07)
[2020-06-09] MEDS: Acetaminophen/HYDROcodone 325-5 MG Tab PO PRN (21:03)
[2020-06-10] MEDS: Acetaminophen/HYDROcodone 325-5 MG Tab PO PRN ×3 (07:34→20:15)
[2020-06-10] MEDS: CALCITONIN NAS SCH (08:00)
[2020-06-10] MEDS: Enoxaparin 40 MG/0.4 ML Syringe SUBCUT SCH (08:01)
[2020-06-10] MEDS: Multivitamins with Minerals/Iron/Folic Acid/Lycopene Tab PO SCH (08:02)
[2020-06-10] MEDS: Omeprazole 20 MG Cap.CR PO SCH ×2 (08:02→17:57)
[2020-06-10] MEDS: Lisinopril 5 MG Tab PO SCH (08:02)
[2020-06-10] MEDS: glipiZIDE 5 MG Tab.ER PO SCH ×2 (08:02→17:56)
[2020-06-10] MEDS: metFORMIN 500 MG Tab PO SCH ×2 (08:02→18:00)
[2020-06-10 08:31] LABS: ANION GAP 14.2 mmol/L (5-15); CHLORIDE,CL 104 mmol/L (98-115); SODIUM,NA 140 mmol/L (136-145)
--- NOTE | 2020-06-10 16:16 | PCM.PN ---
- General Info Date of Service: 06/10/20 Admission Dx/Problem (Free Text): Itractable back pain secondary to vertebral compression fractures. - Review of Systems Systems Review Comment:: Faye is seen today in inpatient rounds. She was admitted directly through the clinic on 06/07/2020 with 10/10 intractable back pain requiring IV medication. She has transitioned to PO hydrocodone and this has been helping, however her pain is never less than a 4 and she continues to move quite slowly. She has, however, been more mobile. She notes she had 3 loose stools yesterday that she attributes to drinking apple juice, which she does not normally do. I feel she would benefit from an additional stay to ensure that she is safe to be at home while her daughter is working and that Faye can meet her own needs during that time. She is still quite slow to move and needs assistance to the bathroom. - Patient Data Vitals - Most Recent: Last Vital Signs Temp 98.2 F 06/10/20 15:00 Pulse 78 06/10/20 15:00 Resp 18 06/10/20 15:00 BP 120/58 L 06/10/20 15:00 Pulse Ox 98 06/10/20 15:00 Weight - Most Recent: 99 lb I&O - Last 24 Hours: Intake & Output 06/10/20 06/10/20 06/10/20 06:59 14:59 22:59 Intake Total 350 520 Balance 350 520 Lab Results Last 24 Hours: Laboratory Results - last 24 hr 06/09/20 06/10/20 06/10/20 Range/Units 17:29 07:30 07:55 WBC 7.61 (5.00-10.00) 10^3/uL RBC 3.57 L (3.80-5.50) 10^6/uL Hgb 10.9 L (12.0-16.0) g/dL Hct 33.3 L (37.0-47.0) % MCV 93.3 H (82.0-92.0) fL MCH 30.5 (27.0-31.0) pg MCHC 32.7 (32.0-36.0) g/dL RDW 13.1 (11.5-14.5) % Plt Count 316 (150-400) 10^3/uL MPV 9.0 (7.4-10.4) fL Immature Gran % (Auto) 0.3 (0.0-5.0) % Neut % (Auto) 63.3 (50.0-70.0) % Lymph % (Auto) 26.3 (20.0-40.0) % [place] % (Auto) 8.5 H (2.0-8.0) % Eos % (Auto) 1.2 (1.0-3.0) % Baso % (Auto) 0.4 (0.0-1.0) % Neut # (Auto) 4.82 (2.50-7.00) 10^3/uL Lymph # (Auto) 2.00 (1.00-4.00) 10^3/uL [place] # (Auto) 0.65 (0.10-0.80) 10^3/uL Eos # (Auto) 0.09 L (0.10-0.30) 10^3/uL Baso # (Auto) 0.03 (0.00-0.10) 10^3/uL Immature Gran # (Auto) 0.02 (0.00-0.50) 10^3/uL Sodium (136-145) mmol/L Potassium (3.3-5.3) mmol/L Chloride (98-115) mmol/L Carbon Dioxide (21.0-32.0) mmol/L Anion Gap (5-15) mmol/L BUN (6-25) mg/dL Creatinine (0.51-1.17) mg/dL Est Cr Clr Drug Dosing mL/min Estimated GFR (MDRD) mL/min Glucose (75 - 99) mg/dL POC Glucose 95 98 (74-100) mg/dL Calcium (8.7-10.3) mg/dL 06/10/20 Range/Units 07:55 WBC (5.00-10.00) 10^3/uL RBC (3.80-5.50) 10^6/uL Hgb (12.0-16.0) g/dL Hct (37.0-47.0) % MCV (82.0-92.0) fL MCH (27.0-31.0) pg MCHC (32.0-36.0) g/dL RDW (11.5-14.5) % Plt Count (150-400) 10^3/uL MPV (7.4-10.4) fL Immature Gran % (Auto) (0.0-5.0) % Neut % (Auto) (50.0-70.0) % Lymph % (Auto) (20.0-40.0) % [place] % (Auto) (2.0-8.0) % Eos % (Auto) (1.0-3.0) % Baso % (Auto) (0.0-1.0) % Neut # (Auto) (2.50-7.00) 10^3/uL Lymph # (Auto) (1.00-4.00) 10^3/uL [place] # (Auto) (0.10-0.80) 10^3/uL Eos # (Auto) (0.10-0.30) 10^3/uL Baso # (Auto) (0.00-0.10) 10^3/uL Immature Gran # (Auto) (0.00-0.50) 10^3/uL Sodium 140 (136-145) mmol/L Potassium 3.8 (3.3-5.3) mmol/L Chloride 104 (98-115) mmol/L Carbon Dioxide 25.6 (21.0-32.0) mmol/L Anion Gap 14.2 (5-15) mmol/L BUN 8 (6-25) mg/dL Creatinine 0.38 L (0.51-1.17) mg/dL Est Cr Clr Drug Dosing 94.87 mL/min Estimated GFR (MDRD) > 60 mL/min Glucose 107 H (75 - 99) mg/dL POC Glucose (74-100) mg/dL Calcium 8.9 (8.7-10.3) mg/dL Med Orders - Current: Current Medications Hydrocodone Bitart/Acetaminophen ([place] 325-5 Mg) 1 tab PO Q4H PRN PRN Reason: Pain Last Admin: 06/10/20 15:31 Dose: 1 tab Documented by: Aspirin (Halfprin) 81 mg PO 1800 [facility] Last Admin: 06/09/20 18:07 Dose: 81 mg Documented by: Atorvastatin Calcium (Lipitor) 20 mg PO 1800 [facility] Last Admin: 06/09/20 18:07 Dose: 20 mg Documented by: Docusate Sodium (Colace) 100 mg PO BID PRN PRN Reason: Constipation Enoxaparin Sodium (Lovenox) 40 mg SUBCUT DAILY [facility] Last Admin: 06/10/20 08:01 Dose: 40 mg Documented by: Glipizide (Glucotrol Xl) 10 mg PO 0900,1800 [facility] Last Admin: 06/10/20 08:02 Dose: 10 mg Documented by: Hydromorphone HCl (Dilaudid) 1 mg PO Q4H PRN PRN Reason: Pain Lisinopril (Prinivil) 5 mg PO DAILY [facility] Last Admin: 06/10/20 08:02 Dose: 5 mg Documented by: Metformin HCl (Glucophage) 1,000 mg PO 0900,1800 [facility] Last Admin: 06/10/20 08:02 Dose: 1,000 mg Documented by: Methocarbamol (Robaxin) 500 mg PO QID PRN PRN Reason: Muscle Spasm Multivitamins/Minerals (Centrum) 1 tab PO DAILY [facility] Last Admin: 06/10/20 08:02 Dose: 1 tab Documented by: Calcitonin ([place]) (Own Med) 1 each JASE DAILY [facility] Last Admin: 06/10/20 08:00 Dose: 1 each Documented by: Omeprazole (Omeprazole) 20 mg PO 0900,1800 [facility] Last Admin: 06/10/20 08:02 Dose: 20 mg Documented by: Ondansetron HCl (Zofran) 4 mg IV Q6H PRN PRN Reason: Nausea/Vomiting Ondansetron HCl (Zofran Odt) 4 mg PO Q6H PRN PRN Reason: Nausea Sodium Chloride (Saline Flush) 10 ml FLUSH Q8HR PRN PRN Reason: keep vein open Last Admin: 06/07/20 16:55 Dose: 10 ml Documented by: Discontinued Medications Aspirin (Halfprin) 81 mg PO ONETIME ONE Stop: 06/07/20 18:31 Last Admin: 06/07/20 19:47 Dose: 81 mg Documented by: Atorvastatin Calcium (Lipitor) 20 mg PO ONETIME ONE Stop: 06/07/20 18:31 Last Admin: 06/07/20 19:47 Dose: 20 mg Documented by: Enoxaparin Sodium (Lovenox) 30 mg SUBCUT ONETIME ONE Stop: 06/07/20 19:01 Last Admin: 06/07/20 18:05 Dose: 30 mg Documented by: Glipizide (Glucotrol Xl) 10 mg PO ONETIME ONE Stop: 06/07/20 18:46 Last Admin: 06/07/20 19:47 Dose: 10 mg Documented by: Hydromorphone HCl (Dilaudid) 0.5 mg IV Q2H PRN PRN Reason: Pain (severe 7-10) Last Admin: 06/09/20 09:17 Dose: 0.5 mg Documented by: Ibuprofen (Motrin) 400 mg PO BEDTIME [facility] Metformin HCl (Glucophage) 1,000 mg PO ONETIME ONE Stop: 06/07/20 18:46 Last Admin: 06/07/20 19:47 Dose: 1,000 mg Documented by: Omeprazole (Omeprazole) 20 mg PO ONETIME ONE Stop: 06/07/20 18:46 Last Admin: 06/07/20 19:46 Dose: 20 mg Documented by: - Exam General: Alert, Oriented, Cooperative, No Acute Distress Lungs: Clear to Auscultation, Normal Respiratory Effort Cardiovascular: Regular Rate, Regular Rhythm, No Murmurs GI/Abdominal Exam: Normal Bowel Sounds, Soft Extremities: No Pedal Edema Sepsis Event Note - Evaluation Sepsis Screening Result: No Definite Risk - Focused Exam Vital Signs: Vital Signs Temp Pulse Resp BP BP Pulse Ox 06/10/20 15:00 98.2 F 78 18 120/58 L 98 06/10/20 10:50 98.7 F 80 16 138/71 97 06/10/20 08:02 123/48 L 06/10/20 06:26 99.3 F 71 20 147/60 H 100 - Problem List Review Problem List Initiated/Reviewed/Updated: Yes - My Orders Last 24 Hours: My Active Orders 06/10/20 07:55 IRON [REF] Routine 06/10/20 10:09 Dietary Supplements [RC] ACBED 06/10/20 10:35 Consult to Dietary [Consult to Tax Accounting Assistant] [CONS] Routine - Assessment Assessment:: Intractable back pain secondary to multilevel vertebral compression fractures, etiology likely from osteoporosis - Change hydromorphone from IV to oral, 1 mg PO q 4 hours PRN (severe pain) - Hydrocodone 5/325 mg tab, 1 tab PO q 4 hours PRN (use before hydromorphone) - I consulted with IR today, they feel she would benefit from kyphoplasty at L2 and L3. I did send through the requested documentation for approval from Medicare. - Continue calcitonin nasal spray daily - Methocarbamol 500 mg PO qid PRN DM with hypoglycemia - Hold glipizide for BG <70, may need to consider decreasing or discontinuing upon discharge - Continue metformin 1,000 mg PO BID Duodenal ulcer - Omeprazole 20 mg PO BID - NO NSAID's Hyperlipidemia - Atorvastatin 20 mg PO daily HTN - Lisinopril 5 mg PO daily DVT prophylaxis - Enoxaparin 40 mg subcut daily Malnutrition - MVI 1 tab PO daily CVD prophylaxis - ASA 81 mg PO daily, counseled patient about risk of bleeding given duodenal ulcer, she wants to stay on this CODE STATUS: Full Code Anticipate discharge tomorrow.
[2020-06-10] MEDS: atorvaSTATin 10 MG Tab PO SCH (17:56)
[2020-06-10] MEDS: Aspirin 81 MG Tab.EC PO SCH (17:57)
[2020-06-10] MEDS: Methocarbamol 500 MG Tab PO PRN (20:19)
[2020-06-11 06:31] VITALS: BP 146/67; PULSE 70
[2020-06-11] MEDS: Enoxaparin 40 MG/0.4 ML Syringe SUBCUT SCH (07:59)
[2020-06-11] MEDS: Multivitamins with Minerals/Iron/Folic Acid/Lycopene Tab PO SCH (08:01)
[2020-06-11] MEDS: Omeprazole 20 MG Cap.CR PO SCH (08:01)
[2020-06-11] MEDS: Lisinopril 5 MG Tab PO SCH (08:01)
[2020-06-11] MEDS: glipiZIDE 5 MG Tab.ER PO SCH (08:01)
[2020-06-11] MEDS: metFORMIN 500 MG Tab PO SCH (08:02)
[2020-06-11] MEDS: Acetaminophen/HYDROcodone 325-5 MG Tab PO PRN ×2 (08:06→11:27)
[2020-06-11] MEDS: Methocarbamol 500 MG Tab PO PRN (08:06)
--- NOTE | 2020-06-11 09:21 | PCM.DCSUM1 ---
Discharge Summary - Hospital Course Free Text/Narrative:: Admission Date: 06/07/2020 Discharge Date: 06/11/2020 Admission Diagnoses/Discharge Diagnoses: Intractable back pain secondary to multilevel vertebral compression fractures, etiology likely from osteoporosis - Hydrocodone 5/325 mg tab, 1 tab PO q 4 hours PRN - I consulted with IR 06/10, they feel she would benefit from kyphoplasty at L2 and L3. I did send through the requested documentation for approval from Medicare. At the time of discharge I have not received confirmation of the approval. - Continue calcitonin nasal spray daily - Methocarbamol 500 mg PO qid PRN Small pressure ulcer of the buttock, left - Duoderm to the area, change every 3 days until healed, was changed on 06/11/2020 DM with hypoglycemia - Hold glipizide for BG <70, has been able to receive for the past 2 days without hypoglycemia - Continue metformin 1,000 mg PO BID Duodenal ulcer - Omeprazole 20 mg PO BID x 8 weeks (started 06/07/2020) - NO NSAID's Hyperlipidemia - Atorvastatin 20 mg PO daily HTN - Lisinopril 5 mg PO daily Malnutrition - MVI 1 tab PO daily CVD prophylaxis - ASA 81 mg PO daily, counseled patient about risk of bleeding given duodenal ulcer, she wants to stay on this CODE STATUS: Full Code Hospital Course: Faye was admitted on 06/07/2020 from the clinic with intractable back pain (06/01) with inability to safely be cared for in the home due to requirement of assistance of >1 person. She was actually seen in the clinic in follow-up from an EGD and colonoscopy done on 06/04. Colonoscopy with external hemorrhoids but EGD with 2 duodenal ulcers. While no evidence of active bleeding was found, her hemoglobin dropped 11.5 on 04/15 to 6.1 on 05/31. She received a transfusion of 2 units PRBC's on 06/01 as an outpatient. She did note she was having black stool but that has since subsided. She was started on omeprazole 20 mg PO BID x 8 weeks on 06/07/2020. When she was in the clinic it took her nearly 3 hours to arise from a seated position due to pain and it took PT and myself with her daughter's encouragement to try to walk. It was clearly unsafe for her to return home. She has been struggling with back pain since spring. She thought it was her low back pain that she received an epidural for last fall with relief and went for repeat epidural injection, however, on fluoro it was concerning for compression fracture and she had an x-ray and MRI (04/17), the MRI showed: --Acute to subacute moderate L3 and mild L2 compression fracture --Subacute mild to moderate L3 compression fracture --Chronic moderate T12 and L1 compression fracture --No nerve root compression In speaking with orthopedics it was recommended that she be fitted with a PARRY or Jewitt brace and start on calcitonin nasal spray, which she has done, really with no improvement in her symptoms. No bowel or bladder issues. She has no radicular symptoms. She has been managing at home with the help of her daughter. She had been on tramadol and methocarbamol for her pain. She was admitted on 06/07 and started on hydromorphone 0.5 mg IV q 2 hours PRN. This was able to be transitioned to hydrocodone/APAP 5/325 mg tabs which she has been using every 6-8 hours with improvement in her pain to a more tolerable level without completely taking her pain away. Prior to her EGD she was having a lot of vomiting and since her EGD and getting started on omeprazole 20 mg PO BID for duodenal ulcer x 2 she has not had any vomiting and her appetite has been quite good. She has been able to ambulate independently and feels ready to return home. She denies any problems with constipation from the narcotic pain medication. Modified [place] Scale: No Signif.Disability Despite Sympt.Able to Carry Out Usual Act./Duties Modified [place] Scale Score: 1 - Discharge Data Discharge Date: 06/11/20 Discharge Disposition: Home, Self-Care 01 Condition: Good - Referral to Home Health Primary Care Physician: Sonia Post MD - Patient Summary/Data Consults: Consultations 06/10/20 10:35 Consult to Dietary [Consult to Mail Room Clerk] [CONS] Routine - Patient Instructions Diet: Usual Diet as Tolerated - Discharge Plan *PRESCRIPTION DRUG MONITORING PROGRAM REVIEWED*: No *COPY OF PRESCRIPTION DRUG MONITORING REPORT IN PATIENT RUI: No Home Medications: Home Meds Aspirin [Halfprin] 81 mg PO ACDINNER 12/06/15 [History] Lisinopril [Prinivil] 5 mg PO DAILY 12/06/15 [History] Multivitamin with Minerals [Multiple Vitamin] 1 tab PO DAILY 12/06/15 [History] atorvaSTATin Calcium [Atorvastatin Calcium] 20 mg PO ACDINNER 12/06/15 [History] glipiZIDE [Glipizide ER] 10 mg PO BID 12/06/15 [History] metFORMIN HCl [Metformin HCl] 1,000 mg PO BID 12/06/15 [History] Calcitonin (Sumpter) [Miacalcin] 200 unit NS ASDIRECTED 06/03/20 [History] Ondansetron [Ondansetron ODT] 4 mg PO Q6H PRN 06/03/20 [History] methocarbamoL [Robaxin] 500 mg PO QID PRN 06/03/20 [History] traMADol [Ultram] 50 mg PO Q6H PRN 06/03/20 [History] Hydrocodone/Acetaminophen [Hydrocodone-Acetamin 5-325 mg] 1 tab PO Q4H PRN 06/07/20 [History] Omeprazole 20 mg PO BID 06/07/20 [History] - Discharge Summary/Plan Comment DC Time >30 min.: No - General Info Date of Service: 06/11/20 Admission Dx/Problem (Free Text: Itractable back pain secondary to vertebral compression fractures. - Patient Data Vitals - Most Recent: Last Vital Signs Temp 98.2 F 06/11/20 06:31 Pulse 70 06/11/20 06:31 Resp 16 06/11/20 06:31 BP 146/67 H 06/11/20 08:01 Pulse Ox 96 06/11/20 06:31 Weight - Most Recent: 99 lb I&O - Last 24 hours: Intake & Output 06/10/20 06/11/20 06/11/20 22:59 06:59 14:59 Intake Total 600 200 Balance 600 200 Lab Results - Last 24 hrs: Laboratory Results - last 24 hr 06/10/20 06/10/20 06/11/20 Range/Units 07:55 17:32 07:56 POC Glucose 131 H 92 (74-100) mg/dL Iron 70 (35-145) ug/dL Med Orders - Current: Current Medications Hydrocodone Bitart/Acetaminophen (Leiter 325-5 Mg) 1 tab PO Q4H PRN PRN Reason: Pain Last Admin: 06/11/20 08:06 Dose: 1 tab Documented by: Aspirin (Halfprin) 81 mg PO 1800 [facility] Last Admin: 06/10/20 17:57 Dose: 81 mg Documented by: Atorvastatin Calcium (Lipitor) 20 mg PO 1800 [facility] Last Admin: 06/10/20 17:56 Dose: 20 mg Documented by: Docusate Sodium (Colace) 100 mg PO BID PRN PRN Reason: Constipation Enoxaparin Sodium (Lovenox) 40 mg SUBCUT DAILY [facility] Last Admin: 06/11/20 07:59 Dose: 40 mg Documented by: Glipizide (Glucotrol Xl) 10 mg PO 0900,1800 [facility] Last Admin: 06/11/20 08:01 Dose: 10 mg Documented by: Hydromorphone HCl (Dilaudid) 1 mg PO Q4H PRN PRN Reason: Pain Lisinopril (Prinivil) 5 mg PO DAILY [facility] Last Admin: 06/11/20 08:01 Dose: 5 mg Documented by: Metformin HCl (Glucophage) 1,000 mg PO 0900,1800 [facility] Last Admin: 06/11/20 08:02 Dose: 1,000 mg Documented by: Methocarbamol (Robaxin) 500 mg PO QID PRN PRN Reason: Muscle Spasm Last Admin: 06/11/20 08:06 Dose: 500 mg Documented by: Multivitamins/Minerals (Centrum) 1 tab PO DAILY [facility] Last Admin: 06/11/20 08:01 Dose: 1 tab Documented by: Calcitonin (Sumpter) (Own Med) 1 each JASE DAILY [facility] Last Admin: 06/10/20 08:00 Dose: 1 each Documented by: Omeprazole (Omeprazole) 20 mg PO 0900,1800 [facility] Last Admin: 06/11/20 08:01 Dose: 20 mg Documented by: Ondansetron HCl (Zofran) 4 mg IV Q6H PRN PRN Reason: Nausea/Vomiting Ondansetron HCl (Zofran Odt) 4 mg PO Q6H PRN PRN Reason: Nausea Sodium Chloride (Saline Flush) 10 ml FLUSH Q8HR PRN PRN Reason: keep vein open Last Admin: 06/07/20 16:55 Dose: 10 ml Documented by: Discontinued Medications Aspirin (Halfprin) 81 mg PO ONETIME ONE Stop: 06/07/20 18:31 Last Admin: 06/07/20 19:47 Dose: 81 mg Documented by: Atorvastatin Calcium (Lipitor) 20 mg PO ONETIME ONE Stop: 06/07/20 18:31 Last Admin: 06/07/20 19:47 Dose: 20 mg Documented by: Enoxaparin Sodium (Lovenox) 30 mg SUBCUT ONETIME ONE Stop: 06/07/20 19:01 Last Admin: 06/07/20 18:05 Dose: 30 mg Documented by: Glipizide (Glucotrol Xl) 10 mg PO ONETIME ONE Stop: 06/07/20 18:46 Last Admin: 06/07/20 19:47 Dose: 10 mg Documented by: Hydromorphone HCl (Dilaudid) 0.5 mg IV Q2H PRN PRN Reason: Pain (severe 7-10) Last Admin: 06/09/20 09:17 Dose: 0.5 mg Documented by: Ibuprofen (Motrin) 400 mg PO BEDTIME GREER Metformin HCl (Glucophage) 1,000 mg PO ONETIME ONE Stop: 06/07/20 18:46 Last Admin: 06/07/20 19:47 Dose: 1,000 mg Documented by: Omeprazole (Omeprazole) 20 mg PO ONETIME ONE Stop: 06/07/20 18:46 Last Admin: 06/07/20 19:46 Dose: 20 mg Documented by: - Exam General: Reports: Alert, Oriented, Cooperative, No Acute Distress Lungs: Reports: Clear to Auscultation, Normal Respiratory Effort Cardiovascular: Reports: Regular Rate, Regular Rhythm, No Murmurs GI/Abdominal Exam: Normal Bowel Sounds Extremities: No Pedal Edema
[2020-06-11] MEDS: CALCITONIN NAS SCH (09:23)
== END 2020-06-11 11:30 | disposition home or self-care (01) | DRG 543 ==
LOC: KA.MS 16:15
PROVIDERS: ADMIT Internal Medicine; ATTEND Internal Medicine
DX: M80.88XA Other osteoporosis with current pathological fracture, vertebra(e), initial encounter for fracture (principal); E46 Unspecified protein-calorie malnutrition; K26.9 Duodenal ulcer, unspecified as acute or chronic, without hemorrhage or perforation; L89.329 Pressure ulcer of left buttock, unspecified stage; E11.649 Type 2 diabetes mellitus with hypoglycemia without coma; I10 Essential (primary) hypertension; F17.210 Nicotine dependence, cigarettes, uncomplicated; M51.26 Other intervertebral disc displacement, lumbar region; E78.5 Hyperlipidemia, unspecified; E78.00 Pure hypercholesterolemia, unspecified; Z20.828 Contact with and (suspected) exposure to other viral communicable diseases; M54.9 Dorsalgia, unspecified; Z79.84 Long term (current) use of oral hypoglycemic drugs; Z79.82 Long term (current) use of aspirin; Z88.0 Allergy status to penicillin; Z68.24 Body mass index [BMI] 24.0-24.9, adult; Z88.7 Allergy status to serum and vaccine
CPT/HCPCS: 36415; 80048; 82962; 83540; 85025; 99223; 99232; 99238; A9270-GY; J1170; J1650; U0002